=== PATIENT | male | born 1965 | race Caucasian/White ===

== ENCOUNTER 2023-02-16 03:30 | Emergency (ER) | payer MEDICAID ==
[~2023-02-16] VITALS: Ht 180.3 cm; Wt 131.8 kg
[2023-02-16 03:31] VITALS: BP 140/86; PULSE 100; RESP 16; TEMP 98.4
[2023-02-16] MEDS ORDERED: KETOROLAC TROMETHAMINE 30 MG/ML VIAL IM ONE (05:00)
[2023-02-16] MEDS ORDERED: HYDROCODONE/ACETAMINOPHEN 5-325 MG TABLET PO ONE (05:00)
[2023-02-16] MEDS ORDERED: TRAM-559 PO (05:26)
== END 2023-02-16 05:34 | disposition home or self-care (01) ==
LOC: EMS 03:32
DX: M72.2 Plantar fascial fibromatosis (principal); F17.210 Nicotine dependence, cigarettes, uncomplicated
CPT/HCPCS: 99283; 96372; J1885